=== PATIENT | female | born 1995 | race Hispanic/Latino ===

== ENCOUNTER 2023-10-21 10:25 | Emergency (ER) | payer MEDICAID, OTHER | END 2023-10-21 11:04 | disposition home or self-care (01) | LOC: CSHERS 10:25 | DX: H66.92 Otitis media, unspecified, left ear (principal) | CPT/HCPCS: 99282 ==

== ENCOUNTER 2024-02-16 15:59 | Outpatient (CLI) | payer MEDICAID | END 2024-02-16 16:00 | disposition home or self-care (01) | LOC: CSHULT 15:59 | DX: R10.2 Pelvic and perineal pain (principal) | CPT/HCPCS: 76856 ==